=== PATIENT | male | born 1985 | race African-American/Black ===

== ENCOUNTER 2025-04-17 20:37 | Emergency (ER) | payer OTHER ==
[~2025-04-17] VITALS: Ht 152.4 cm; Wt 79.4 kg
[2025-04-17] MEDS ORDERED: KETOROLAC TROMETHAMINE 15 MG INJ ONE (22:04)
[2025-04-17] MEDS ORDERED: HYDROMORPHONE 1 MG/1 ML DISP.SYRIN ONE (22:04)
[2025-04-17] MEDS: HYDROMORPHONE 1 MG/1 ML DISP.SYRIN IV ONE (22:08)
[2025-04-17] MEDS: KETOROLAC TROMETHAMINE 15 MG INJ IVP ONE (22:08)
[2025-04-18] MEDS ORDERED: AMOXICILLIN-CLAVUL 875-125MG TABLET ONE (00:52)
[2025-04-18] MEDS ORDERED: HYDROCODONE/APAP 5-325MG TABLET ONE (00:53)
[2025-04-18] MEDS: HYDROCODONE/APAP 5-325MG TABLET PO ONE (00:58)
[2025-04-18] MEDS: AMOXICILLIN-CLAVUL 875-125MG TABLET PO ONE (00:58)
[2025-04-18] MEDS ORDERED: NAPR-1009 PO (01:32)
[2025-04-18] MEDS ORDERED: HYDR-4209 PO (01:32)
[2025-04-18] MEDS ORDERED: AMOX-430 PO (01:32)
[2025-04-18 02:00] VITALS: BP 133/93
[2025-04-18 02:17] VITALS: BP 135/87; O2SAT 97
== END 2025-04-18 02:18 | disposition home or self-care (01) ==
LOC: ER 20:41
DX: S71.152A Open bite, left thigh, initial encounter (principal); S81.851A Open bite, right lower leg, initial encounter; S81.852A Open bite, left lower leg, initial encounter; S51.851A Open bite of right forearm, initial encounter; S51.852A Open bite of left forearm, initial encounter; Z79.899 Other long term (current) drug therapy; W54.0XXA Bitten by dog, initial encounter; X58.XXXA Exposure to other specified factors, initial encounter; Y93.89 Activity, other specified; Y92.89 Other specified places as the place of occurrence of the external cause; Y99.8 Other external cause status
CPT/HCPCS: 12004; 73551; 73590; 96374; 96375; 99285; J1171; J1885; A4606; A4663